=== PATIENT | female | born 1985 ===

== ENCOUNTER 2018-07-31 17:35 | Emergency (ER) | payer OTHER ==
[2018-07-31 17:54] VITALS: PULSE 67; RESP 18
[2018-07-31 18:26] LABS: SQUAMOUS EPITHIAL 1 /hpf (0-5); URINE BACTERIA RARE (<OCC); URINE BILIRUBIN NEGATIVE (NEGATIVE); URINE BLOOD NEGATIVE (NEGATIVE); URINE CLARITY Clear (Clear); URINE COLOR Yellow (YELLOW); URINE GLUCOSE (UA) NORMAL (Normal); URINE LEUKOCYTE ESTERASE NEG Leu/uL (Negative); URINE PROTEIN NEGATIVE (NEGATIVE)
--- NOTE | 2018-07-31 19:41 | C.PDOC ---
History Of Present Illness 33 y/o female lmp 9/3 here with right pelvic pain x 1 days, no vaginal bleeding or dishcharge,. no hx sti or pid, neg home preg tests. Time Seen by Provider: 07/31/18 18:47 Chief Complaint (Nursing): Abdominal Pain Past Medical History Reviewed: Historical Data, Nursing Documentation, Vital Signs Vital Signs: Last Vital Signs Temp 99.2 F 07/31/18 17:53 Pulse 67 07/31/18 17:53 Resp 18 07/31/18 17:53 BP 135/89 07/31/18 17:53 Pulse Ox 100 07/31/18 17:53 - Medical History PMH: No Chronic Diseases Family History: States: Unknown Family Hx - Social History Hx Alcohol Use: No Hx Substance Use: No - Immunization History Hx Tetanus Toxoid Vaccination: No Hx Influenza Vaccination: No Hx Pneumococcal Vaccination: No Review Of Systems Constitutional: Negative for: Fever, Chills Cardiovascular: Negative for: Chest Pain Respiratory: Negative for: Cough, Shortness of Breath Gastrointestinal: Positive for: Abdominal Pain. Negative for: Nausea, Vomiting, Diarrhea Genitourinary: Positive for: Pelvic Pain. Negative for: Vaginal Discharge, Vaginal Bleeding Skin: Negative for: Rash Neurological: Negative for: Weakness Physical Exam - Physical Exam Appears: Non-toxic, No Acute Distress Skin: Warm, Dry Head: Atraumatic, Normacephalic Eye(s): bilateral: Normal Inspection Neck: Supple Cardiovascular: Rhythm Regular, No Murmur Respiratory: No Decreased Breath Sounds, No Wheezing Gastrointestinal/Abdominal: Bowel Sounds, Soft, Tenderness (right pelvic area), No Distention, No Guarding, No Rebound Neurological/Psych: Oriented x3, Normal Speech, Normal Cognition ED Course And Treatment - Laboratory Results Result Diagrams: 07/31/18 20:01 07/31/18 20:01 O2 Sat by Pulse Oximetry: 100 Medical Decision Making Medical Decision Making: right pelvic pain with +,l eval for ectopic 7 pt with iup on us,. no yolk sac, no pole noted, betha > [id number]. right ovarian corpus luteal cyst. d/c home iwth f/u 2 days for repeat bhcg and us. pt understands plan. Disposition Counseled Patient/Family Regarding: Studies Performed, Diagnosis, Need For Followup - Disposition Disposition: HOME/ ROUTINE Disposition Time: 22:21 Condition: GOOD Additional Instructions: Return to ER in 2 days for repeat bloodwork (bhcg) and repeat transvaginal ultrasound. Return to ER sooner for worsening pain, heavy vaginal bleeding or any other concerns. Recommend pelvic rest- nothing in vagina, no sex, tampons or douching. Instructions: Threatened Miscarriage (DC) Forms: General Discharge Instructions, [facility] ([place]), Work Excuse - Clinical Impression Clinical Impression: Threatened
[2018-07-31 20:09] LABS: BASO % 0.2 % (0.0-2.0); EOS # 0.2 K/uL (0.0-0.7); EOS % 2.1 % (0.0-4.0); HEMOGLOBIN 14.3 g/dL (11.0-16.0); LYMPH # 2.5 K/uL (1.0-4.3); LYMPH % 22.9 % (20.0-40.0); MEAN CELL VOLUME 84.2 fL (81.0-99.0); MEAN CORPUSCULAR HEMOGLOBIN 27.7 pg (27.0-31.0); MEAN CORPUSCULAR HGB CONC 32.9 g/dL (33.0-37.0); MEAN PLATELET VOLUME 9.4 fL (7.2-11.7); MONO # 0.6 K/uL (0.0-0.8); MONO % 5.4 % (0.0-10.0); NEUT # 7.5 K/uL (1.8-7.0); NEUT % 69.4 % (50.0-75.0); RBC 5.16 Mil/uL (3.80-5.20); RED CELL DISTRIBUTION WIDTH 13.3 % (11.5-14.5); WHITE BLOOD COUNT 10.8 K/uL (4.8-10.8)
[2018-07-31 20:21] LABS: ALB/GLOB RATIO 1.5 (1.0-2.1); ALBUMIN 4.3 g/dL (3.5-5.0); ALT/SGPT 13 U/L (9-52); AST/SGOT 15 U/L (14-36); BLOOD UREA NITROGEN 12 mg/dL (7-17); CALCIUM 9.4 mg/dl (8.6-10.4); GFR NON-AFRICAN AMERICAN > 60
[2018-07-31 22:40] VITALS: BP 129/84; TEMP 98.5
--- NOTE | 2018-08-01 11:06 | US ---
Date of service: 07/31/2018 PROCEDURE: OB Pelvic Ultrasound HISTORY: right pelvic pain lmp 9/ COMPARISON: None available. FINDINGS: UTERUS: Single intrauterine gestation. Gestational sac diameter measures 1.20 cm equivalent to 5 weeks and 2 days of gestational age Yolk sac is visualized. No pole is identified on the current examination. age (Ultrasound estimated): 5 weeks and 2 days. Date of delivery (Ultrasound estimated) : 03/31/2019 Melody-gestational hemorrhage: None. Uterus measures 8.0 x 5.2 x 6.1 cm. No mass CERVIX: Long and closed. There are nabothian cysts. RIGHT OVARY: Measures 2.5 x 1.9 x 2.1 cm. No mass. Normal flow. There is a 1.0 cm corpus luteum cyst. LEFT OVARY: Measures 2.0 x 1.1 x 1.8 cm. No mass. Normal flow. FREE FLUID: None. OTHER FINDINGS: None. IMPRESSION: Single intrauterine gestational sac with mean gestational age of 5 weeks and 2 days. Yolk sac is identified however no pole is identified on the current examination which is likely related to early gestation. Clinical and imaging follow-up is advised to confirm viability. A preliminary report was provided by [employer].
[2018-08-04 12:20] VITALS: O2SAT 100
== END 2018-07-31 22:41 | disposition home or self-care (01) ==
LOC: C.ER 17:35
DX: O20.0 Threatened abortion (principal); Z3A.01 Less than 8 weeks gestation of pregnancy